=== PATIENT | male | born 1995 | race American Indian/Alaskan Native ===

== ENCOUNTER 2019-11-17 07:27 | Emergency (ER) | payer OTHER ==
[~2019-11-17] VITALS: Ht 177.8 cm; Wt 81.8 kg
--- NOTE | 2019-11-17 08:03 | REPVR ---
PROCEDURE INFORMATION: Exam: CT Cervical Spine Without Contrast Exam date and time: 11/17/2019 7:49 AM Age: 24 years old Clinical indication: Injury or trauma; Fall; Initial encounter; Blunt trauma; Injury date: Today; Additional info: Syncope TECHNIQUE: Imaging protocol: Computed tomography images of the cervical spine without contrast. Radiation optimization: All CT scans at this facility use at least one of these dose optimization techniques: automated exposure control; mA and/or kV adjustment per patient size (includes targeted exams where dose is matched to clinical indication); or iterative reconstruction. COMPARISON: No relevant prior studies available. FINDINGS: Vertebrae: No acute fracture. Normal alignment. C2-C3: No significant disc protrusion. No severe spinal canal stenosis. No significant neural foraminal narrowing. C3-C4: No significant disc protrusion. No severe spinal canal stenosis. No significant neural foraminal narrowing. C4-C5: No significant disc protrusion. No severe spinal canal stenosis. No significant neural foraminal narrowing. C5-C6: No significant disc protrusion. No severe spinal canal stenosis. No significant neural foraminal narrowing. C6-C7: No significant disc protrusion. No severe spinal canal stenosis. No significant neural foraminal narrowing. C7-T1: No significant disc protrusion. No severe spinal canal stenosis. No significant neural foraminal narrowing. Soft tissues: Unremarkable. Lungs: Lung apices are normal. IMPRESSION: No CT evidence of traumatic cervical spine injury. Electronically signed by: Mykel Obregon On 11/17/2019 08:02:43 AM
--- NOTE | 2019-11-17 08:06 | REPVR ---
PROCEDURE INFORMATION: Exam: CT Head Without Contrast Exam date and time: 11/17/2019 7:49 AM Age: 24 years old Clinical indication: Injury or trauma; Fall; Initial encounter; Abrasion and blunt trauma (contusions or hematomas); Consciousness not specified; Face; Injury date: Today; Additional info: Syncope TECHNIQUE: Imaging protocol: Computed tomography of the head without contrast. Radiation optimization: All CT scans at this facility use at least one of these dose optimization techniques: automated exposure control; mA and/or kV adjustment per patient size (includes targeted exams where dose is matched to clinical indication); or iterative reconstruction. COMPARISON: No relevant prior studies available. FINDINGS: Brain: There is a thin linear density in the inferior anterior interhemispheric falx seen on axial image and coronal image 13. Ventricles: Normal. No ventriculomegaly. Bones/joints: Unremarkable. No acute fracture. Sinuses: Visualized sinuses are unremarkable. No fluid levels. Mastoid air cells: Visualized mastoid air cells are well aerated. Soft tissues: Unremarkable. IMPRESSION: 1. No CT evidence of intra-axial hemorrhage, mass effect or midline shift. 2. Thin linear density in the anterior inferior interhemispheric falx possibly artifactual however subtle subarachnoid blood cannot be completely excluded. Short-term follow-up CT scan is recommended. Electronically signed by: Mykel Obregon On 11/17/2019 08:06:12 AM
[2019-11-17 08:08] LABS: BASO # 0.1 10^3/uL (0.0-0.2); BASO % 0.3 % (0.0-1.0); EOS # 0.1 10^3/uL (0.0-0.5); EOS % 0.2 % (0.0-3.0); HEMATOCRIT 46.9 % (42.0-52.0); LYMPH % 6.9 % (24.0-44.0); MEAN CORPUSCULAR HEMOGLOBIN 30.7 pg (27.0-33.0); MEAN CORPUSCULAR HGB CONC 34.1 g/dl (32.0-36.5); MONO # 2.1 10^3/uL (0.0-0.8); NEUTROPHILS # 24.9 10^3/uL (1.5-8.5); NEUTROPHILS % 84.5 % (36.0-66.0); PLATELET COUNT, AUTOMATED 270 10^3/uL (150-450); RED BLOOD COUNT 5.21 10^6/uL (4.30-6.10); WHITE BLOOD COUNT 29.5 10^3/uL (4.0-10.0)
[2019-11-17 08:19] LABS: INR 1.14; PROTHROMBIN TIME 14.3 SECONDS (11.8-14.0)
[2019-11-17] MEDS ORDERED: NS 1,000 ML IV SCH (08:23)
[2019-11-17] MEDS ORDERED: D5W/0.45% SODIUM CHLORIDE 1,000 ML IV SCH (08:30)
[2019-11-17 08:46] LABS: CALCIUM LEVEL 9.4 MG/DL (8.5-10.1); CREATININE FOR GFR 2.16 MG/DL (0.70-1.30); FREE T4 1.35 NG/DL (0.76-1.46); GLOMERULAR FILTRATION RATE 40.2 (>60); MAGNESIUM LEVEL 2.5 MG/DL (1.8-2.4); POTASSIUM SERUM 4.3 MEQ/L (3.5-5.1); THYROID STIMULATING HORMONE 1.28 uIU/ML (0.358-3.740)
[2019-11-17 08:50] VITALS: BP 130/98
--- NOTE | 2019-11-17 09:06 | REP ---
Clinical: Syncope/near-syncopal episode . Comparison: None . Findings: The mediastinum and cardiac silhouette are stable and within normal limits for portable technique. The lung lion are clear without acute consolidation, effusion, or pneumothorax. Skeletal structures are intact. Impression: No acute cardiopulmonary process appreciated. Electronically Signed by Maxx Thomson MD 11/17/2019 08:57 A
--- NOTE | 2019-11-18 01:07 | ECGEPIP ---
[facility] - ED Test Date: 2019-11-17 Pat Name: LIZZY CHERRY Department: Room: - Gender: Male [employer]: PAO : 1995 Requested By: IRINA Mason Order Number: [id number] Reading MD: Dc Cole Measurements Intervals [place] Rate: 88 P: 50 ME: 108 QRS: 65 QRSD: 88 T: 25 QT: 355 QTc: 431 Interpretive Statements SINUS RHYTHM WITH SHORT ME INTERVAL Comparison tracing not on file Electronically Signed on 11-18-2019 1:06:37 EDT by Dc Cole
== END 2019-11-17 08:54 | disposition short-term general hospital (02) ==
LOC: M ED 07:27 → EDBD 07:27 → M ED 08:54
DX: R55 Syncope and collapse (principal); E16.2 Hypoglycemia, unspecified; S00.81XA Abrasion of other part of head, initial encounter; X50.9XXA Other and unspecified overexertion or strenuous movements or postures, initial encounter; Y92.89 Other specified places as the place of occurrence of the external cause; Y93.01 Activity, walking, marching and hiking; Y99.1 Military activity

== ENCOUNTER 2021-02-16 10:24 | Emergency (ER) | payer OTHER ==
[~2021-02-16] VITALS: Ht 177.8 cm; Wt 81.3 kg
[2021-02-16] MEDS ORDERED: BACT800T5 PO (13:02)
[2021-02-16 13:24] VITALS: BP 118/60
== END 2021-02-16 13:25 | disposition home or self-care (01) ==
LOC: M ED 10:24
DX: L60.0 Ingrowing nail (principal)

== ENCOUNTER 2021-03-10 10:53 | Emergency (ER) | payer OTHER ==
[~2021-03-10] VITALS: Ht 180.3 cm; Wt 81.1 kg
[~2021-03-10 10:53] MED LIST: BACT800T5 PO
[2021-03-10 10:54] VITALS: BP 130/67
[2021-03-10] MEDS ORDERED: CEPH500C PO (12:12)
== END 2021-03-10 12:20 | disposition home or self-care (01) ==
LOC: M ED 10:53
DX: L03.032 Cellulitis of left toe (principal)

== ENCOUNTER 2021-08-25 18:45 | Emergency (ER) | payer OTHER ==
[~2021-08-25] VITALS: Ht 177.8 cm; Wt 83.4 kg
[2021-08-25 18:45] VITALS: BP 140/79
[~2021-08-25 18:45] MED LIST changes: +CEPH500C PO
== END 2021-08-25 20:01 | disposition home or self-care (01) ==
LOC: M ED 18:45
DX: S00.03XA Contusion of scalp, initial encounter (principal); W01.0XXA Fall on same level from slipping, tripping and stumbling without subsequent striking against object, initial encounter; Y92.9 Unspecified place or not applicable; Y93.9 Activity, unspecified; Y99.9 Unspecified external cause status